=== PATIENT | male | born 1960 | race Two or more races ===

== ENCOUNTER → 2016-05-03 | Day surgery (SDC) | payer BC ==
[~2016-05-03] VITALS: Ht 180.3 cm; Wt 83.9 kg
[~2016-05-03] MED LIST: ASPIR 8181 MG ORAL; ATORVASTATIN CA40 MG ORAL; COQ1050 MG PO; FISH OIL 1,4001 EAC1 PO; LR 1000ml 1,000 ML IVLG SCH; LR 1000ml ONE; Lidocaine 1% MPF 10mg/ml 5ml ONE; Propofol 10mg/ml 20ml IV ONE; VITAMIN B12 COMPLEX PO
--- NOTE | 2016-05-03 07:42 | Immediate Post-Op Evaluation ---
Immediate Post-Op Evalulation Immediate Post-Op Evalulation Procedure: Colonoscopy Date of Evaluation: May 03, 2016 Time of Evaluation: 10:56 IV Fluids: 400 ml Blood Products: 0 Estimated Blood Loss: 0 Urinary Output: nm Blood Pressure Systolic: 143 Blood Pressure Diastolic: 91 Pulse Rate: 49 Respiratory Rate: 16 O2 Sat by Pulse Oximetry: 97 Temperature (Fahrenheit): 97.1 Pain Score (1-10): 0 Nausea: No Vomiting: No Complications none Patient Status: reacts, patent, none Hydration Status: adequate Drug: none FABBY MCKINNEY M.D. May 03, 2016 07:42
--- NOTE | 2016-05-03 07:44 | 48 Hour Post Anesthesia Eval ---
Post Anesthesia Evaluation Procedure: Colonoscopy Date of Evaluation: May 03, 2016 Time of Evaluation: 11:25 Blood Pressure Systolic: 142 0: 77 Pulse Rate: 50 Respiratory Rate: 16 Temperature (Fahrenheit): 97 O2 Sat by Pulse Oximetry: 100 Airway: patent Nausea: No Vomiting: No Pain Intensity: 0 Hydration Status: adequate Cardiopulmonary Status: stable Mental Status/LOC: other - drowsy Follow-up Care/Observations: per PACU protocol Post-Anesthesia Complications: none Follow-up care needed: N/A FABBY MCKINNEY M.D. May 03, 2016 07:44
[2016-05-03 09:33] VITALS: BP 119/75
--- NOTE | 2016-05-03 10:05 | Short Stay Surgery H&P ---
History of Present Illness History of Present Illness Chief Complaint screening colon HPI Jose Santos is a 56 year old male who was admitted on for Colon Screening Patient History Allergies: Coded Allergies: No Known Allergies (Unverified , 05/02/16) PAST MEDICAL HISTORY: Past Surgeries: Social History: Medication History Scheduled Aspirin* (Aspir 81*), 81 MG ORAL DAILY, (Reported) Atorvastatin Calcium* (Atorvastatin Calcium*), 40 MG ORAL BEDTIME, (Reported) [place]-3/Dha/Epa/Fish Oil (Fish Oil 1,400 Mg Softgel), 1 EACH PO DA, (Reported) Ubidecarenone (Coq10), 300 MG PO DA, (Reported) [Vitamin B12 Complex], 1 TAB PO DA, (Reported) Review of Systems Cardiovascular: Reports: no symptoms Respiratory: Reports: no symptoms Skeletal: Reports: no symptoms Gastrointestinal: Reports: no symptoms Genitourinary: Reports: no symptoms Neurologic: Reports: no symptoms Endocrine: Reports: no symptoms Hematologic: Reports: no symptoms Physical Exam Vital Signs Last Vital Signs Date Time Temp Pulse Resp B/P Pulse Ox O2 Delivery O2 Flow Rate FiO2 05/03/16 09:33 98.0 62 18 119/75 96 Room Air Skin: normal HENT: normal Heart: normal Lungs: normal Abdomen: normal Extremities: normal Genitourinary: normal Plan Plan of Care Total colonoscopy. Preop Interventions None. Summary of Findings See the report. Final Diagnosis: Attestation Are the patient's medical conditions optimized for surgery? Attestation Response: yes BARBARA PRECIADO May 03, 2016 10:05
--- NOTE | 2016-05-03 10:06 | Pre-Procedure Note/Attestation ---
Pre-Procedure Note/Attestation Complete Prior to Procedure Planned Procedure: left Procedure Narrative: examination of the colon via colonoscopy for screening colon cancer. Indications for Procedure Pre-Operative Diagnosis: R/O colon polyp/cancer. Attestation I attest that I discussed the nature of the procedure; its benefits; risks and complications; and alternatives (and the risks and benefits of such alternatives ), prior to the procedure, with the patient (or the patient's legal aircraft sales representative). I attest that, if there was a reasonable possibility of needing a blood transfusion, the patient (or the patient's legal aircraft sales representative) was given the [place] Department [employer] standardized written summary, pursuant to the [place] Blood Safety Act ([place] Health and Safety Code # 1645, as amended). I attest that I re-evaluated the patient just prior to the surgery and that there has been no change in the patient's H&P, except as documented below: OZZY,SAID May 03, 2016 10:06
--- NOTE | 2016-05-03 10:23 | Anethesia Preoperative Eval ---
Anesthesia Pre-op PMH/ROS General Date of Evaluation: May 03, 2016 Time of Evaluation: 10:12 Anesthesiologist: Deo ASA Score: ASA 2 Mallampati Score Class I : Soft palate, uvula, fauces, pillars visible Class II: Soft palate, uvula, fauces visible Class III: Soft palate, base of uvula visible Class IV: Only hard plate visible Mallampati Classification: Class I Surgeon: Elaina Diagnosis: Colon screening Surgical Procedure: Screening colonoscopy Anesthesia History: other - no complic Social History: smoking Family History: no anesthesia problems Allergies: Coded Allergies: No Known Allergies (Unverified , 05/02/16) Medications: see eMAR Past Medical History Cardiovascular: Reports: other Anesthesia Pre-op Phys. Exam Physician Exam Last Vital Signs Date Time Temp Pulse Resp B/P Pulse Ox O2 Delivery O2 Flow Rate FiO2 05/03/16 09:33 98.0 62 18 119/75 96 Room Air Constitutional: NAD Neurologic: CN 2-12 intact Cardiovascular: RRR Respiratory: CTA Airway Exam Mallampati Score: Class I MO: full ROM: full FABBY MCKINNEY M.D. May 03, 2016 10:23
--- NOTE | 2016-05-03 10:44 | Endoscopy Procedure Note ---
Endoscopy Procedure Note Indication for Procedure: Screening colonoscopy Procedures Performed: colonoscopy - Highly redundant and twisted colon with poor prep, otherwise completely normal total colonoscopy. Specimen: none Pt Tolerated Procedure Well: Yes Estimated Blood Loss: none Anesthesiologist: Dr. Desouza Anesthesia: moderate sedation Medication Given: see anesthesia record Implant(s) used?: No 50 yrs or older w/o bx or poly: Yes 10yrs. F/U not recommended: Yes 10 yrs. F/U needed: Yes 18 years or older w/prev. colo: No <3yrs. since last colonoscopy: No Med reason:<3 yrs.: System Reason:<3 yrs.: BARBARA PRECIADO May 03, 2016 10:44
--- NOTE | 2016-05-03 10:45 | Discharge Instructions ---
Discharge Instructions Discharge Instructions Follow up with: There was normal colonoscopy no need for office follow up. For Congestive Heart Failure Reminder Report to your physician any weight gain of 5 pounds or more in one week. OZZY,SAID May 03, 2016 10:45
[2016-05-03 10:50] VITALS: BP 143/81
[2016-05-03 11:00] VITALS: BP 117/65
[2016-05-03 11:05] VITALS: BP 121/64
[2016-05-03 11:15] VITALS: BP 123/60
[2016-05-03 11:30] VITALS: BP_SYST 125; BP_SYST 130; BP_DIAS 62; BP_DIAS 84
--- NOTE | 2016-05-03 13:28 | Operative Note - Dictated ---
DATE OF OPERATION: 05/03/2016 PROCEDURE: Total colonoscopy. PREOPERATIVE DIAGNOSIS: Screening colonoscopy. POSTOPERATIVE DIAGNOSIS: Highly redundant twisted colon with poor colonic preparation, otherwise completely normal total colonoscopy. MEDICATION USED: Per Dr. Powell, anesthesiologist. INSTRUMENT: GIF Olympus videocolonoscope. DESCRIPTION OF PROCEDURE: The patient after arriving in the endoscopy unit, was told about risks and benefits of the procedure, which he accepted and signed the informed consent. He was then put on the left lateral decubitus position. After adequate IV sedation, scope gradually entered into the anal area and a retroflexion maneuver was applied here, which did not reveal any major pathology such as polyps, tumors, hemorrhoids etc. At this point, the scope was gradually passed through a very redundant twisted left colon, which took significant amount of time to pass through the scope and this area was filled with liquidy stool making the examination difficult. However, there was no any gross pathology such as tumors, polyps, or strictures, bleeding site etc. Gradually after irrigation of the colon in this area, scope reached toward the splenic flexure, from there into transverse colon, hepatic flexure, right colon all the way to the base of the cecum. All these areas were normal and the appendiceal opening was also visualized. At this point, within 6 minutes the scope was gradually pulled out and re-evaluation of the colon did not reveal any other pathology. The patient tolerated the procedure well and left the endoscopy room in a good condition. Said Andrew Delaney DR: Jessica JOB#: [id number] CC:
== END | disposition home or self-care (01) ==
LOC: GAS 08:27
DX: Z12.11 Encounter for screening for malignant neoplasm of colon (principal); Q43.8 Other specified congenital malformations of intestine; F17.200 Nicotine dependence, unspecified, uncomplicated; Z79.82 Long term (current) use of aspirin; Z79.899 Other long term (current) drug therapy
CPT/HCPCS: 45378; J2704; J7120; 94003; 94150